=== PATIENT | male | born 1965 | race Caucasian/White ===

== ENCOUNTER 2017-07-03 05:53 | Day surgery (SDC) | payer OTHER ==
[~2017-07-03] VITALS: Ht 180.3 cm; Wt 97.5 kg
[2017-07-03] MEDS ORDERED: NASACORT A55 MCG/ACT (06:12)
[2017-07-03] MEDS ORDERED: RANITIDINE150 M1 PO (06:12)
[2017-07-03] MEDS ORDERED: LORATADINE10 M1 PO (06:12)
[2017-07-03] MEDS ORDERED: TERAZOSIN1 MG PO (06:13)
[2017-07-03 06:58] LABS: HEMATOCRIT 45.6 % (39.0-50.0); HEMOGLOBIN 16.2 g/dl (14.0-18.0); IMMATURE GRANULOCYTES 0.4 % (0.0-1.0); MEAN CELL VOLUME 89.2 fL CALC (80.0-100.0); MEAN CORPUSCULAR HGB 31.7 pG CALC (26.0-32.0); MEAN CORPUSCULAR HGB CONC 35.5 g/L CALC (32.0-36.0); NEUT# 4.46 thou/uL (1.82-7.42); RED BLOOD COUNT 5.11 mill/uL (4.70-6.10)
[2017-07-03 07:22] LABS: ALBUMIN 4.5 g/dL (3.2-5.0); ALKALINE PHOSPHATASE 62 u/l (38-126); ANION GAP 16 (6-22 (CALC)); BILIRUBIN, TOTAL 1.1 mg/dL (0.0-1.4); BUN 16 mg/dL (9-20); BUN/CREATININE RATIO 18 (12-20 (CALC)); CALCIUM 9.8 mg/dL (8.4-10.2); CARBON DIOXIDE 26 mmol/l (22-30); CHLORIDE 104 mmol/l (95-108); CREATININE 0.9 mg/dL (0.7-1.3); GFR > 60 ML/MIN (>=60 (CALC)); GFR FOR AFR.AMER. > 60 ML/MIN (>=60 (CALC)); GLUCOSE 87 mg/dL (75-110); SGOT/AST 21 u/l (17-59); SGPT/ALT 32 u/l (21-72); SODIUM 141 mmol/l (137-146); TOTAL PROTEIN 7.7 g/dL (6.3-8.2)
[2017-07-03 07:58] LABS: ACT PARTIAL THROMBO TIME 25.9 SECONDS (20.0-32.5); PROTHROMBIN TIME 11.1 SECONDS (9.0-12.5)
[2017-07-03] MEDS ORDERED: NORCO1 TA1 PO (10:07)
[2017-07-03] MEDS ORDERED: BACLOFEN10 MG PO (10:07)
[2017-07-03] MEDS ORDERED: BACITRACIN500 UNIT/G TOP (10:07)
[2017-07-03] MEDS ORDERED: TORADOL PO (10:07)
[2017-07-03] MEDS ORDERED: DOCUSATE CAL240 MG PO (10:07)
[2017-07-03 12:27] VITALS: BP 121/61
== END 2017-07-03 10:40 | DRG 712 ==
LOC: ORM 05:53
PROVIDERS: ATTEND Urology
PROC: 0VB60ZZ Excision of Right Tunica Vaginalis, Open Approach (ICD-10-PCS; principal; 2017-07-03)
DX: N43.3 Hydrocele, unspecified (principal); K21.9 Gastro-esophageal reflux disease without esophagitis; N40.1 Benign prostatic hyperplasia with lower urinary tract symptoms; R39.15 Urgency of urination; R35.1 Nocturia; R35.0 Frequency of micturition; R39.12 Poor urinary stream
CPT/HCPCS: J2710